=== PATIENT | male | born 2000 | race Caucasian/White ===

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

== ENCOUNTER 2018-12-21 19:45 | Emergency (ER) | payer BC, OTHER ==
--- NOTE | 2018-12-21 20:35 | EDM.PDOC ---
ED HPI GENERAL MEDICAL PROBLEM - General Chief Complaint: Upper Extremity Injury/Pain Stated Complaint: INJURY TO R HAND Time Seen by Provider: 12/21/18 19:55 Source of Information: Reports: Patient History Limitations: Reports: No Limitations - History of Present Illness INITIAL COMMENTS - FREE TEXT/NARRATIVE: Patient comes into the ED after jamming his right index finger during basketball. He had a prior laceration to this finger last year and he states he had some nerve damage to it and has not had normal feeling since last year. He told TRACY Nguyen he's here because he is sick of it and wants a referral. He has no other complaints today. Onset: Today, Sudden Duration: Chronic (acute on chronic) Quality: Reports: Ache Severity: Mild Improves with: Reports: None Worsens with: Reports: Movement - Related Data Allergies Allergy/AdvReac Type Severity Reaction Status Date / Time No Known Allergies Allergy Verified 12/22/17 11:09 Home Meds: Home Meds . [No Known Home Meds] 12/22/17 [History] Past Medical History - Past Health History Medical/Surgical History: Denies Medical/Surgical History Review of Systems - Review of Systems Review Of Systems: See Below Constitutional: Reports: No Symptoms Eyes: Reports: No Symptoms Ears: Reports: No Symptoms Nose: Reports: No Symptoms Mouth/Throat: Reports: No Symptoms Respiratory: Reports: No Symptoms Cardiovascular: Reports: No Symptoms GI/Abdominal: Reports: No Symptoms Genitourinary: Reports: No Symptoms Musculoskeletal: Reports: Other (right index finger pain, numbness, and weakness ) Skin: Reports: No Symptoms Neurological: Reports: No Symptoms Psychiatric: Reports: No Symptoms ED EXAM, GENERAL - Physical Exam Exam: See Below Exam Limited By: No Limitations General Appearance: Alert, WD/WN, No Apparent Distress Head: Atraumatic, Normocephalic Neck: Normal Inspection, Supple, Non-Tender, Full Range of Motion Respiratory/Chest: No Respiratory Distress, Lungs Clear, Normal Breath Sounds, No Accessory Muscle Use, Chest Non-Tender Cardiovascular: Normal Peripheral Pulses, Regular Rate, Rhythm, No Edema, No Gallop, No JVD, No Murmur, No Rub Extremities: Normal Inspection, Normal Range of Motion, Non-Tender, Normal Capillary Refill, No Pedal Edema Neurological: Alert, Oriented, CN II-XII Intact, Normal Cognition, Normal Gait, Normal Reflexes, No Motor/Sensory Deficits Psychiatric: Normal Affect, Normal Mood Skin Exam: Warm, Dry, Intact, Normal Color, No Rash Course - Orders/Labs/Meds Orders: Active Orders 24 hr Category Date Time Status Hand 2V Rt [CR] Stat Exams 12/21/18 20:00 Ordered - Re-Assessments/Exams Free Text/Narrative Re-Assessment/Exam: 12/21/18 20:38 Review of x-ray, no acute process of the finger. Departure - Departure Time of Disposition: 20:40 Disposition: Home, Self-Care 01 Condition: Good Clinical Impression: Sprain of interphalangeal joint of right index finger - Discharge Information *PRESCRIPTION DRUG MONITORING PROGRAM REVIEWED*: Not Applicable *COPY OF PRESCRIPTION DRUG MONITORING REPORT IN PATIENT MURIEL: Not Applicable Instructions: Finger Sprain, Adult, [id number], Elastic Bandage and RICE, Cryotherapy, [id number] Forms: ED Department Discharge Additional Instructions: Plan 1. Call [facility] or [facility] tomorrow to schedule an appointment with a primary care provider who can then refer you to both physical therapy and a hand specialist. The ED typically does not send out referrals but instead request that you follow up with primary care so you can be followed more closely and have better continuity of care. 2. Elevate, compress, rest, and ice the finger. 3. Leave in splint, remove to bathe or shower. 4. Alternate ibuprofen and tylenol for pain and swelling. 5. Please call if you have any further questions or concerns. - Problem List & Annotations (1) Sprain of interphalangeal joint of right index finger SNOMED Code(s): 85882275 Code(s): S63.630A - SPRAIN OF INTERPHALANGEAL JOINT OF RIGHT INDEX FINGER, INIT Status: Acute Priority: Medium Current Visit: Yes Qualifiers: Encounter type: initial encounter Qualified Code(s): S63.630A - Sprain of interphalangeal joint of right index finger, initial encounter - Problem List Review Problem List Initiated/Reviewed/Updated: Yes - My Orders Last 24 Hours: My Active Orders 12/21/18 20:00 Hand 2V Rt [CR] Stat - Assessment/Plan Last 24 Hours: My Active Orders 12/21/18 20:00 Hand 2V Rt [CR] Stat Assessment:: sprain of right interphalangeal joint of index finger Plan: Plan 1. Call [facility] or [facility] tomorrow to schedule an appointment with a primary care provider who can then refer you to both physical therapy and a hand specialist. The ED typically does not send out referrals but instead request that you follow up with primary care so you can be followed more closely and have better continuity of care. 2. Elevate, compress, rest, and ice the finger. 3. Leave in splint, remove to bathe or shower. 4. Alternate ibuprofen and tylenol for pain and swelling. 5. Please call if you have any further questions or concerns.
--- NOTE | 2018-12-22 09:31 | CR ---
[id number] RAD/RAD Hand Right 2V Exam: RAD Hand Right 2V Indication:BASKETBALL INJURY Comparison: No prior imaging for comparison. Discussion: Bones are normal alignment. No fracture. Joint spaces are well-preserved. Bone mineralization is normal. Impression: Normal examination of the hand. Ubaldo Amador MD 12/21/183 Thank you for allowing us to participate in the care of your patient.
== END 2018-12-21 20:39 | disposition home or self-care (01) ==
LOC: VM.ED 19:45
DX: S63.630A Sprain of interphalangeal joint of right index finger, initial encounter (principal); W23.0XXA Caught, crushed, jammed, or pinched between moving objects, initial encounter; Y93.67 Activity, basketball
CPT/HCPCS: 29130; 73120-RT; 99283-25